=== PATIENT | male | born 1940 | race Caucasian/White ===

== ENCOUNTER 2017-04-09 05:18 | Day surgery (SDC) | payer OTHER ==
[2017-04-01 11:46] VITALS: BMI 19.0
[2017-04-04 11:12] VITALS: BMI 19.0
--- NOTE | 2017-04-04 11:32 | PAT Medication Instructions ---
Service Date Apr 04, 2017. Current Home Medication List Aspirin (Aspirin Ec), 81 MG PO QPM Carvedilol (Carvedilol), 12.5 MG PO BID Lisinopril (Zestril), 10 MG PO NOON Tamsulosin Hcl (Flomax), 0.4 MG PO QAM Medication Instructions For Your Scheduled Surgery - Hold the following medications 24 hours prior to surgery: Lisinopril (Zestril), 10 MG PO NOON - Hold the following medications the morning of surgery: Tamsulosin Hcl (Flomax), 0.4 MG PO QAM - Take the following medications the morning of surgery with a sip of water: Carvedilol (Carvedilol), 12.5 MG PO BID - Take the following medications as scheduled the night before surgery: Carvedilol (Carvedilol), 12.5 MG PO BID Aspirin (Aspirin Ec), 81 MG PO QPM (okay to continue per surgeon) If you have any questions please call us at [phone] or [phone] or [phone]
[~2017-04-09] VITALS: Ht 175.3 cm; Wt 59.1 kg
[~2017-04-09 05:18] MED LIST: ASPI81TA28 PO; CRG625 PO; FINA5TAB4 PO; LISI-461 PO; TAMS0.4C38 PO
[2017-04-09 05:30] VITALS: BP 160/67; PULSE 52; TEMP 36.6; O2SAT 97; Ht 175.3 cm; Wt 59.1 kg
[2017-04-09] MEDS ORDERED: CEFAZOLIN 2000 MG/60 ML D5W IV SCH (06:00)
[2017-04-09] MEDS ORDERED: SODIUM CHLORIDE 0.9% 1000ML 1,000 ML IV SCH (06:00)
[2017-04-09 06:21] LABS: BUN/CREATININE RATIO 12.9 (10-20); CALCIUM 8.8 mg/dl (8.5-10.1); CREATININE 2.2 mg/dl (0.60-1.40); POTASSIUM 4.2 mmol/L (3.5-5.1)
[2017-04-09] MEDS ORDERED: MIDAZOLAM HCL 1 MG/ML 2ML VIAL ONE (06:50)
[2017-04-09] MEDS ORDERED: CONRAY 30% 150ML BOTTLE ONE (06:54)
--- NOTE | 2017-04-09 07:01 | History & Physical Bridge Note ---
H&P Re-Evaluation Bridge Note: I have examined the patient, reviewed the History & Physical and in the interval since the performance of the History & Physical I have noted the following changes of clinical significance: No changes noted
[2017-04-09] MEDS ORDERED: FENTANYL CITRATE INJ 50 MCG/1 ML 2 ML VIAL ONE ×2 (07:30→08:35)
[2017-04-09] MEDS ORDERED: PROPOFOL IV EMULSION 10 MG/ML 20 ML VIAL IV ONE (07:41)
[2017-04-09] MEDS ORDERED: BELLADONNA/OPIUM SUPP 60 MG SUPP PR ONE ×2 (08:13→08:20)
[2017-04-09] MEDS ORDERED: HYDROmorphone INJ 1 MG/ML SYR IV PRN (08:30)
[2017-04-09] MEDS ORDERED: ATROPINE SULFATE 0.1 MG/ML 5ML SYR IV PRN (08:30)
[2017-04-09] MEDS ORDERED: EpHEDrine SULFATE INJ 50 MG/ML AMP IV PRN (08:30)
[2017-04-09] MEDS ORDERED: FENTANYL CITRATE INJ 50 MCG/1 ML 2 ML VIAL IV PRN (08:30)
[2017-04-09] MEDS ORDERED: ONDANSETRON INJ 2 MG/ML 2 ML VIAL IV PRN (08:30)
--- NOTE | 2017-04-09 08:35 | [facility] Operative Report ---
Operative Report Operative Date Apr 09, 2017. Pre-Operative Diagnosis Right Hydroureteronephrosis Post-Operative Diagnosis RIGHT URETERAL TUMOR Procedure(s) Performed CYSTOSCOPY, RIGHT RETROGRADE PYELOGRAM, right ureteroscopy, biopsy of right ureteral tumor, placement of hobson catheter Surgeon Dr. 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 Fluids 1000mL Specimens Permanent specimen A: Biopsy Right Ureteral Tumor Drains 6 fr firm 26 centimeter double J stent Anesthesia iv sedation Disposition Recovery Room / PACU Indications right hydroureteronephrosis which did not improve with treatment of urinary retention with Hobson catheter. We plan a right retrograde pyelogram and possible ureteroscopy and stent to investigate the cause of the ureteral obstruction Description of Procedure Patient was sedated and placed in lithotomy position. His genitals were prepped and draped in sterile fashion. Time out held with team. I placed a 21 fr rigid cystoscope to bladder. The urethra is unremarkable. The prostate is large long and elevates the bladder neck. Scope insertion was very uncomfortable for patient and did stir up bleeding at bladder neck. The bladder is moderately trabeculated. The uos are laterally displaced. I cannulated the right UO with a angled road runner and it has a bit of J hooking. I placed a 5 fr open ended catheter over the wire to the mid ureter. There is very brisk hydro drip thru the 5 fr open ended cath. I performed a right retrograde pyelogram with 30mL of dye. There is hydroureter to the mid portion of the mid ureter and then a 20mm stretch of filling defect in the distal portion of mid ureter and proximal portion of the distal ureter, then a more normal caliber distal ureter. I suspect tumor and so elected to proceed with flexible ureteroscopy. I replaced the road runner wire to the kidney and had difficulty getting the wire passed the point of filling defect. i think there is solid mass here. Wire ultimately passed with some guidance from 5 fr catheter. I placed a dual lumen cath easily and placed a stiff wire as well. I then placed a flexible ureteroscope over the road runner wire to mid ureter. I took washings and then slowly backed up the scope. He has a large papillary tumor filling the lumen of the ureter. I used a basket to take a biopsy which was predictably very small and did stir up some bleeding. I tried a second time to biopsy the mass with a basket and again retrieved very small piece of tissue. I then removed ureteroscope. I then placed a 26 centimeter 6 Fr stiff double J stent easily. There is brisk efflux after placement. I left bladder empty by placing a 18 fr coude hobson with moderate resistance at the prostate. I then concluded case. I placed a belladonna and opium suppository for post-op pain. He transferred to recovery under my escort, in stable condition. Plan: Home today Pyridium for dysuria x 3 days flomax daily oral pain meds as needed creatinine check in a week hobson out tomorrow am will call with washing results. Will need further endoscopic evaluation, [place] [facility] [place] comorbid severe heart disease. ASA 4 clean contaminated case 2 minutes 32 seconds fluoro ancef antibiotic police liaison I attest to the content of the Intraoperative Record and any orders documented therein. Any exceptions are noted below.
[2017-04-09] MEDS ORDERED: PHEN-775 PO (08:36)
[2017-04-09] MEDS ORDERED: TRAM-10 PO (08:36)
--- NOTE | 2017-04-09 08:44 | Discharge Instructions ---
Discharge Instructions Date of Service Apr 09, 2017. 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 Instructions / Follow-Up Instructions / Follow-Up You may remove hobson catheter at home morning 04.10.17 Call office [phone] if not voiding well by noon. Urine will be bloody for many days, perhaps even weeks. Drink extra fluids when the urine is bloody to rinse out the bladder call with fever, confusion or severe bladder burning as these can be symptoms of bladder infection. use tylenol 650mg for mild pain and ultram 50mg for severe pain you will have pain at the urethra, bladder and right kidney. Discharge Diet Recommended Diet: Regular Diet Procedures Procedures Performed: Cystoscopy, Right Retrograde Pyelogram; Stent Placement; Ureteroscopy, Right Ureteral Tumor Biopsy Pending Studies Studies pending at discharge: yes List of pending studies: pathology, cytology Medical Emergencies . Who to Call and When: Medical Emergencies: If at any time you feel your situation is an emergency, please call 911 immediately. . Non-Emergent Contact Non-Emergency issues call your: Urologist Call Non-Emergent contact if: temperature is above 100.5 . . "Provider Documentation" section prepared by Neelima Vargas. . VTE Core Measure Inpt VTE Proph given/why not?: SCD's [place] Drug Monitoring Program Search Results: patient reviewed within database, no issues identified
--- NOTE | 2017-04-09 09:00 | Anesthesiology Progress Note ---
Anesthesia Post Op Note Date & Time Apr 09, 2017 at 09:00 Vital Signs Pain Intensity: 1 Vital Signs Past 12 Hours Date Time Temp Pulse Resp B/P (MAP) Pulse Ox O2 Delivery O2 Flow Rate FiO2 04/09/17 08:50 36.4 52 16 129/75 98 Room Air 04/09/17 08:40 53 16 135/82 95 Room Air 04/09/17 08:30 68 16 158/94 100 Mask 10 04/09/17 08:22 36.3 68 16 145/86 100 Mask 10 04/09/17 05:30 36.6 52 20 160/67 (98) 97 Room Air Notes Mental Status: alert / awake / arousable, participated in evaluation Pt Amnestic to Procedure: Yes Nausea / Vomiting: adequately controlled Pain: adequately controlled Airway Patency, RR, SpO2: stable & adequate BP & HR: stable & adequate Hydration State: stable & adequate Anesthetic Complications: no major complications apparent
[2017-04-09 09:05] VITALS: BP 149/77; PULSE 50; TEMP 36.4; O2SAT 97
[2017-04-09 09:35] VITALS: BP 154/77; PULSE 45; TEMP 36.4; O2SAT 97
[2017-04-09 10:05] VITALS: BP 138/72; PULSE 45; TEMP 36.3; TEMP 36.4; O2SAT 97
--- NOTE | 2017-04-09 11:12 | DIAGNOSTIC IMAGING REPORT ---
RETROGRADE INCLUDES KUB HISTORY: RT CYSTO/STENT FLUOROSCOPY TIME: 156 seconds. FINDINGS: 11 fluoroscopic spot images were submitted for review. There is a guidewire within the right ureter placed in a retrograde fashion. This is followed by injection of contrast. Large filling defect seen within the distal right ureter with upstream dilatation. Moderate to severe right hydronephrosis. A right ureteral stent was placed and appears to be an good position. IMPRESSION: Fluoroscopy provided for right ureteral stent placement.. Electronically signed by: Zeus Chan M.D. 04/09/2017 11:10 AM Dictated Date/Time: 04/09/2017 11:09 AM
== END 2017-04-09 10:30 | disposition home or self-care (01) ==
LOC: C.ACU 05:18
PROVIDERS: ATTEND Urology
DX: D30.21 Benign neoplasm of right ureter (principal); I25.10 Atherosclerotic heart disease of native coronary artery without angina pectoris; E78.5 Hyperlipidemia, unspecified; I25.2 Old myocardial infarction; Z79.82 Long term (current) use of aspirin; Z68.1 Body mass index [BMI] 19.9 or less, adult; I10 Essential (primary) hypertension; Z95.1 Presence of aortocoronary bypass graft

== ENCOUNTER 2022-12-07 21:44 | Observation (INO) ==
[2022-12-07] MEDS ORDERED: ACETAMINOPHEN 1,000 MG/100 ML VIAL IV STA (21:55)
--- NOTE | 2022-12-07 22:02 | Emergency Department Note ---
History of Present Illness General Chief complaint: Fall Stated complaint: FELL, BACK PAIN, TROUBLE BREATHING Time Seen by Provider: 12/07/22 21:49 History of Present Illness Maximum Pain Intensity: 8 This 82-year-old gentleman on aspirin presents to the ER complaining of severe left-sided pain after he fell tripping over his dog. Patient complains of chest pain shortness of breath and left side pain. He does not think he hit his head. Patient denies numbness, tingling, localized weakness. Pain got worse and he came in. Home Medications Medication Instructions Recorded Confirmed Type amiodarone 200 mg tablet 200 mg PO QAM 11/30/21 12/07/22 History aspirin 81 mg chewable tablet 81 mg PO QDL 11/30/21 12/07/22 History carvedilol 12.5 mg tablet 12.5 mg PO BID 11/30/21 12/07/22 History finasteride 5 mg tablet 5 mg PO QAM 11/30/21 12/07/22 History isosorbide mononitrate 30 mg 30 mg PO QAM 11/30/21 12/07/22 History tablet,extended release 24 hr prednisone 5 mg tablet 2.5 mg PO QAM 11/30/21 12/07/22 History tamsulosin 0.4 mg capsule 0.4 mg PO QAM 11/30/21 12/07/22 History cyanocobalamin (vitamin B-12) 500 500 mcg PO DAILY 12/07/22 12/07/22 History mcg tablet (Vitamin B-12) ferrous sulfate 325 mg (65 mg 325 mg PO 3XWK 12/07/22 12/07/22 History iron) tablet (iron) levothyroxine 25 mcg tablet 37.5 mcg PO DAILYBB 12/07/22 12/07/22 History Allergies Allergy/AdvReac Type Severity Reaction Status Date / Time atorvastatin AdvReac Intermediate MUSCLE Verified 11/30/21 13:42 ACHES ARMS AND LEGS,SWELLING Past Med/Surg History Social History Smoking Status: Former smoker Preferred Language: Portuguese Feels Safe at Home: Yes Review of Systems A total of 10 systems reviewed and were otherwise negative Physical Exam Vital Signs Vital Signs - 24 hr 12/07/22 21:45 12/07/22 22:03 12/07/22 22:04 Temperature 37.2 C Temperature Source Temporal Artery Scan Pulse Rate 59 L Pulse Rate [Apical] 56 L Respiratory Rate 18 35 H Respiratory Effort / Characteristics Non-Labored Spontaneous Respiratory Depth Shallow Respiratory Pattern Regular Blood Pressure 145/79 H Blood Pressure [Right Arm] 139/91 Blood Pressure Mean 101 Blood Pressure Mean [Right Arm] 107 Blood Pressure Position [Right Arm] Lying Pulse Oximetry 94 99 98 Oxygen Delivery Method Room Air Room Air Room Air Sepsis Recent Fever Within 48 Hours No Sepsis New/Unexplained Change in Mental Status No Sepsis Action Taken by Nursing No Action Required 12/07/22 23:30 12/08/22 00:00 12/08/22 01:00 Temperature Temperature Source Pulse Rate Pulse Rate [Apical] 52 L 48 L 50 L Respiratory Rate 16 18 16 Respiratory Effort / Characteristics Respiratory Depth Respiratory Pattern Blood Pressure Blood Pressure [Right Arm] 133/58 L 154/56 H 160/69 H Blood Pressure Mean Blood Pressure Mean [Right Arm] 83 88 99 Blood Pressure Position [Right Arm] Pulse Oximetry 98 95 96 Oxygen Delivery Method Room Air Room Air Room Air Sepsis Recent Fever Within 48 Hours Sepsis New/Unexplained Change in Mental Status Sepsis Action Taken by Nursing PHYSICAL EXAM: VITALS: Vitals are noted on the nurse's note and reviewed by myself. Vital signs stable. GENERAL: Pleasant male who appears in pain, in no acute distress, nondiaphoretic, well-developed well-nourished. SKIN: The skin was without obvious lacerations or abrasions. Capillary reflex less than 2 seconds. HEAD: Normocephalic atraumatic. EARS: External auditory canals clear, EYES: Pupils equal round and reactive to light and accommodation. Conjunctivae without injection, sclerae without icterus. Extraocular movements intact. NOSE: Patent, turbinates without inflammation or discharge. No sinus tenderness. No septal hematoma or bleeding. MOUTH: Mucous membranes moist. Pharynx without erythema or exudate. Uvula midline. Airway patent. Tongue does not deviate. NECK: Supple without nuchal rigidity. Cervical spine is nontender. Full range of motion of the neck without tenderness. No JVD. HEART: Regular rate and rhythm LUNGS: Clear to auscultation bilaterally without wheezes, rales or rhonchi. No dullness to percussion. No retractions or accessory muscle use. Left-sided chest wall tenderness. ABDOMEN: Positive bowel sounds x 4. Normal tympanic percussion. Soft, left- sided abdomen tender to palpation, without masses or organomegaly. No guarding or rebound tenderness. MUSCULOSKELETAL: No tenderness of the thoracic or lumbar spine. No tenderness with pelvic rocking. Full range of motion without tenderness to palpation in all extremities. Normal gait. Strength 5/5 throughout. NEURO: Patient was alert and oriented to person place and time. Normal sensation to light and sharp touch. No focal neurological deficits. Course Administered Medications Discontinued Medications Acetaminophen (Ofirmev) 1,000 mg in 100 mls @ 400 mls/hr IV NOW STA Stop: 12/07/22 22:09 Last Infusion: 12/07/22 22:39 Dose: 0 mls/hr Documented By: Admin: 12/07/22 22:14 Dose: 400 mls/hr Documented By: MARTHA Sodium Chloride (Nss 1000ml) 500 mls @ 999 mls/hr IV .Q31M ONE Stop: 12/07/22 22:53 Last Infusion: 12/07/22 23:42 Dose: 0 mls/hr Documented By: Admin: 12/07/22 23:08 Dose: 999 mls/hr Documented By: MARTHA Medical Decision Making Medical Records Attestation: I reviewed the patient's medical records. Home Medications Current Medication List: was personally reviewed by me Laboratory Data Attestation: I reviewed the patient's lab results. 12/07/22 22:01 12/07/22 22:01 Lab Results 12/07/22 12/07/22 12/07/22 Range/Units 22:01 22:01 22:11 WBC 6.33 (4.8-10.8) K/ul RBC 3.90 L (4.70-6.10) M/uL Hgb 12.2 L (14.0-18.0) g/dl POC Hgb 12.9 L (14.0-18.0) g/dl Hct 36.9 L (42.0-52.0) % POC Hct 38 L (42-52) % MCV 94.6 (80.0-100.0) fL MCH 31.3 (25.0-34.0) pg MCHC 33.1 (32.0-36.0) g/dL RDW Std Deviation 46.2 (36.4-46.3) fL RDW Coeff of Janay 13.5 (11.5-14.5) % Plt Count 267 (130-400) K/uL MPV 8.7 L (9.4-12.4) fL Immature Gran % (Auto) 0.6 % Neut % (Auto) 60.7 % Lymph % (Auto) 21.0 % Johnston % (Auto) 9.8 % Eos % (Auto) 7.0 % Baso % (Auto) 0.9 % Neut # (Auto) 3.84 (1.40-6.50) K/uL Lymph # (Auto) 1.33 (1.2-3.4) K/uL Johnston # (Auto) 0.62 H (0.11-0.59) K/uL Eos # (Auto) 0.44 (0-0.50) K/uL Baso # (Auto) 0.06 (0-0.2) K/uL Immature Gran # (Auto) 0.04 (0.01-0.20) K/uL POC Sodium 142 (135-144) mmol/L Sodium 140 (136-145) mmol/L POC Potassium 4.2 (3.3-5.0) mmol/L Potassium 3.9 (3.5-5.1) mmol/L POC Chloride 108 (101-112) mmol/L Chloride 108 H (98-107) mmol/L Carbon Dioxide 27 (21-32) mmol/L POC Total CO2 26 (24-31) mmol/L Anion Gap 5 (3-11) POC Anion Gap 13.0 L (16-25) mmol/L POC BUN 32 H (7-18) mg/dl BUN 34 H (6-23) mg/dl Creatinine 2.21 H (0.6-1.4) mg/dl POC Creatinine 2.3 H (0.6-1.3) mg/dl Est Cr Clr Drug Dosing 21.6 ml/min Est GFR ( Amer) 31.0 ml/min Est GFR (Non-Af Amer) 26.8 ml/min BUN/Creatinine Ratio 15.4 (10-20) Glucose 125 H (70-99(Fasting)) mg/dl POC Glucose (other) 123 H (70-99) mg/dl Calcium 8.6 (8.5-10.1) mg/dl POC Ioniz Calcium Romain 1.12 (1.12-1.32) mmol/l Total Bilirubin 0.3 (0.2-1.0) mg/dl AST 17 (13-39) U/L ALT 9 (7-52) U/L Alkaline Phosphatase 108 H (34-104) U/L Total Creatine Kinase 82 (30-223) U/L Troponin I High Sens 9.0 (0-20) pg/ml Total Protein 6.8 (6.0-8.3) gm/dl Albumin 3.6 (3.4-5.0) gm/dl Globulin 3.2 (2.5-4.0) gm/dl Albumin/Globulin Ratio 1.1 (0.9-2) Urine Color Urine Appearance (Clear) Urine pH (4.5-7.5) Ur Specific [place] (1.000-1.030) Urine Protein (Negative) Urine Glucose (UA) (Negative) Urine Ketones (Negative) Urine Blood (Negative) Urine Nitrite (Negative) Urine Bilirubin (Negative) Urine Urobilinogen (Negative) Ur Leukocyte Esterase (Negative) Urine WBC (Auto) (0-5) /hpf Urine RBC (Auto) (0-4) /hpf U Hyaline Cast (Auto) (0-5) /lpf U Epithel Cells (Auto) (0-5) /lpf Urine Bacteria (Auto) (Negative) SARS-CoV-2, RNA, NAAT (NEGATIVE) 12/07/22 12/07/22 Range/Units 22:18 23:04 WBC (4.8-10.8) K/ul RBC (4.70-6.10) M/uL Hgb (14.0-18.0) g/dl POC Hgb (14.0-18.0) g/dl Hct (42.0-52.0) % POC Hct (42-52) % MCV (80.0-100.0) fL MCH (25.0-34.0) pg MCHC (32.0-36.0) g/dL RDW Std Deviation (36.4-46.3) fL RDW Coeff of Janay (11.5-14.5) % Plt Count (130-400) K/uL MPV (9.4-12.4) fL Immature Gran % (Auto) % Neut % (Auto) % Lymph % (Auto) % Johnston % (Auto) % Eos % (Auto) % Baso % (Auto) % Neut # (Auto) (1.40-6.50) K/uL Lymph # (Auto) (1.2-3.4) K/uL Johnston # (Auto) (0.11-0.59) K/uL Eos # (Auto) (0-0.50) K/uL Baso # (Auto) (0-0.2) K/uL Immature Gran # (Auto) (0.01-0.20) K/uL POC Sodium (135-144) mmol/L Sodium (136-145) mmol/L POC Potassium (3.3-5.0) mmol/L Potassium (3.5-5.1) mmol/L POC Chloride (101-112) mmol/L Chloride (98-107) mmol/L Carbon Dioxide (21-32) mmol/L POC Total CO2 (24-31) mmol/L Anion Gap (3-11) POC Anion Gap (16-25) mmol/L POC BUN (7-18) mg/dl BUN (6-23) mg/dl Creatinine (0.6-1.4) mg/dl POC Creatinine (0.6-1.3) mg/dl Est Cr Clr Drug Dosing ml/min Est GFR ( Amer) ml/min Est GFR (Non-Af Amer) ml/min BUN/Creatinine Ratio (10-20) Glucose (70-99(Fasting)) mg/dl POC Glucose (other) (70-99) mg/dl Calcium (8.5-10.1) mg/dl POC Ioniz Calcium Romain (1.12-1.32) mmol/l Total Bilirubin (0.2-1.0) mg/dl AST (13-39) U/L ALT (7-52) U/L Alkaline Phosphatase (34-104) U/L Total Creatine Kinase (30-223) U/L Troponin I High Sens (0-20) pg/ml Total Protein (6.0-8.3) gm/dl Albumin (3.4-5.0) gm/dl Globulin (2.5-4.0) gm/dl Albumin/Globulin Ratio (0.9-2) Urine Color Yellow Urine Appearance Clear (Clear) Urine pH 6.0 (4.5-7.5) Ur Specific [place] 1.017 (1.000-1.030) Urine Protein Negative (Negative) Urine Glucose (UA) Negative (Negative) Urine Ketones Negative (Negative) Urine Blood Negative (Negative) Urine Nitrite Negative (Negative) Urine Bilirubin Negative (Negative) Urine Urobilinogen Negative (Negative) Ur Leukocyte Esterase Trace H (Negative) Urine WBC (Auto) 1-5 (0-5) /hpf Urine RBC (Auto) 0-4 (0-4) /hpf U Hyaline Cast (Auto) 0 (0-5) /lpf U Epithel Cells (Auto) 10-20 H (0-5) /lpf Urine Bacteria (Auto) Negative (Negative) SARS-CoV-2, RNA, NAAT NEGATIVE (NEGATIVE) Imaging Data Attestation: I personally reviewed and interpreted this imaging study as follows: Radiologist's Impression: Chest X-Ray 12/07/22 21:55 XR chest 1V portable HISTORY: 82 years-old Male fall, pain . Acute chest pain status post fall COMPARISON: 11/30/2021 TECHNIQUE: AP view of the chest FINDINGS: Cardiac silhouette is enlarged. Prior median sternotomy with CABG. Left subclavian pacer/AICD. Mild subsegmental left basilar atelectasis. No pneumothorax or large pleural effusion. Degenerative changes of the shoulders and spine. IMPRESSION: Cardiomegaly without acute process. ACT 112: Negative or not required by law. The above report was generated using voice recognition software. It may contain grammatical, syntax or spelling errors. Electronically signed by: Len Gerardo M.D. 12/07/2022 10:22 PM Abdomen/Pelvis CT 12/07/22 21:56 CT chest diagnostic wo con, CT lumbar spine wo con, CT thoracic spine wo con, CT abd pelvis wo con CLINICAL HISTORY: 82 years-old Male with Trauma. Acute chest, abdominal and back pain status post fall TECHNIQUE: Multiaxial CT images of the chest, abdomen and pelvis, thoracic and lumbar spine were performed without contrast. A dose lowering technique was utilized adhering to the principles of ALARA. COMPARISON: CT abdomen pelvis 11/30/2021, 12/19/2015 FINDINGS: CT CHEST: Unremarkable thyroid. Left subclavian pacer. Prior median sternotomy with CABG. Extensive coronary artery calcifications. Moderate cardiomegaly. No thoracic aortic aneurysm. No lymphadenopathy identified. No pneumothorax, pleural effusion, airspace consolidation or overt pulmonary edema. Mild subsegmental bibasilar atelectasis. Stable benign 6 cm nodule within the right lower lobe on image 198 is unchanged from 2016. There are a few additional scattered solid pulmonary nodules noted bilaterally measuring up to 3 mm. Central airways are patent. Unremarkable soft tissues. Degenerative changes of the shoulders and spine. No acute fracture identified. Minimal age- indeterminate superior endplate compression of the T4 vertebral body without retropulsion or paravertebral edema. CT ABDOMEN/PELVIS: The unenhanced spleen, and pancreas. Unremarkable. Thickening of the adrenal glands suggestive of hyperplasia. Cholelithiasis. Hepatic cysts are redemonstrated measuring up to approximately 3.4 cm in the right hepatic lobe. Unchanged mild left renal atrophy. Interval development of severe right-sided hydroureteronephrosis with right renal atrophy redemonstrated. Ureteral dilation extends to the level of the ureterovesicular junction. No obstructing mass or stone identified. Prostamegaly. Urinary bladder wall thickening. Atherosclerosis of the aorta. No lymphadenopathy identified. No bowel obstruction or bowel wall thickening. Moderate colonic fecal retention. Normal appendix. No acute fracture identified. Degenerative changes of the spine, pelvis and hips. CT THORACIC: Minimal age-indeterminate superior endplate compression of the T4 vertebral body without retropulsion or paravertebral edema. No definitive acute fracture or subluxation identified. Additional chronic appearing mild wedge deformities. Mild to moderate degenerative changes. CT LUMBAR: Mild to moderate degenerative changes. No acute fracture or subluxation identified. Demineralized appearance of the bones. IMPRESSION: 1. No acute posttraumatic intrathoracic, intra-abdominal or intrapelvic abnormality identified. 2. Mild age-indeterminate T4 superior endplate compression without retropulsion or paravertebral edema, likely chronic. 3. Interval development of severe right-sided hydroureteronephrosis with dilation of the right ureter extending to level of the ureterovesicular junction. No obstructing stone or lesion identified. Follow-up with urology is needed. 4. Right greater than left renal atrophy redemonstrated. 5. Additional findings as above. ACT 112: Negative or not required by law. Electronically signed by: Len Gerardo M.D. 12/07/2022 11:[address] 12/07/22 21:56 CT cervical spine wo con CT DOSE: 1366.88 mGy.cm CLINICAL HISTORY: 82 years-old Male with Trauma. Acute head and neck injury status post fall COMPARISON: CT cervical spine 12/19/2015 TECHNIQUE: Multiple axial CT images of the cervical spine were obtained without contrast. A dose lowering technique was utilized adhering to the principles of ALARA. FINDINGS: Multilevel degenerative changes. No acute fracture or subluxation identified. The cervical soft tissues appear unremarkable. The visualized lung apices appear clear. Trace mastoid effusions. Calcifications of the carotid bulbs. IMPRESSION: No acute cervical spine fracture or subluxation. ACT 112: Negative or not required by law. The above report was generated using voice recognition software. It may contain grammatical, syntax or spelling errors. Electronically signed by: Len Gerardo M.D. 12/07/2022 11:[address] 12/07/22 21:56 CT chest diagnostic wo con, CT lumbar spine wo con, CT thoracic spine wo con, CT abd pelvis wo con CLINICAL HISTORY: 82 years-old Male with Trauma. Acute chest, abdominal and back pain status post fall TECHNIQUE: Multiaxial CT images of the chest, abdomen and pelvis, thoracic and lumbar spine were performed without contrast. A dose lowering technique was utilized adhering to the principles of ALARA. COMPARISON: CT abdomen pelvis 11/30/2021, 12/19/2015 FINDINGS: CT CHEST: Unremarkable thyroid. Left subclavian pacer. Prior median sternotomy with CABG. Extensive coronary artery calcifications. Moderate cardiomegaly. No thoracic aortic aneurysm. No lymphadenopathy identified. No pneumothorax, pleural effusion, airspace consolidation or overt pulmonary edema. Mild subsegmental bibasilar atelectasis. Stable benign 6 cm nodule within the right lower lobe on image 198 is unchanged from 2016. There are a few additional scattered solid pulmonary nodules noted bilaterally measuring up to 3 mm. Central airways are patent. Unremarkable soft tissues. Degenerative changes of the shoulders and spine. No acute fracture identified. Minimal age- indeterminate superior endplate compression of the T4 vertebral body without retropulsion or paravertebral edema. CT ABDOMEN/PELVIS: The unenhanced spleen, and pancreas. Unremarkable. Thickening of the adrenal glands suggestive of hyperplasia. Cholelithiasis. Hepatic cysts are redemonstrated measuring up to approximately 3.4 cm in the right hepatic lobe. Unchanged mild left renal atrophy. Interval development of severe right-sided hydroureteronephrosis with right renal atrophy redemonstrated. Ureteral dilation extends to the level of the ureterovesicular junction. No obstructing mass or stone identified. Prostamegaly. Urinary bladder wall thickening. Atherosclerosis of the aorta. No lymphadenopathy identified. No bowel obstruction or bowel wall thickening. Moderate colonic fecal retention. Normal appendix. No acute fracture identified. Degenerative changes of the spine, pelvis and hips. CT THORACIC: Minimal age-indeterminate superior endplate compression of the T4 vertebral body without retropulsion or paravertebral edema. No definitive acute fracture or subluxation identified. Additional chronic appearing mild wedge deformities. Mild to moderate degenerative changes. CT LUMBAR: Mild to moderate degenerative changes. No acute fracture or subluxation identified. Demineralized appearance of the bones. IMPRESSION: 1. No acute posttraumatic intrathoracic, intra-abdominal or intrapelvic abnormality identified. 2. Mild age-indeterminate T4 superior endplate compression without retropulsion or paravertebral edema, likely chronic. 3. Interval development of severe right-sided hydroureteronephrosis with dilation of the right ureter extending to level of the ureterovesicular junction. No obstructing stone or lesion identified. Follow-up with urology is needed. 4. Right greater than left renal atrophy redemonstrated. 5. Additional findings as above. ACT 112: Negative or not required by law. Electronically signed by: Len Gerardo M.D. 12/07/2022 11:[address] 12/07/22 21:56 CT head/brain wo con CLINICAL HISTORY: 82 years-old Male with Trauma. Acute head injury status post fall TECHNIQUE: Multiple axial CT images of the head were obtained without contrast. A dose lowering technique was utilized adhering to the principles of ALARA. COMPARISON: CT cervical spine of same day, head CT 12/19/2015 FINDINGS: No acute intracranial hemorrhage, midline shift, intracranial mass, hydrocephalus, territorial ischemia or abnormal extra-axial collection. Involutional changes with chronic microvascular ischemic disease. Cerebral vascular calcifications. The calvarium is intact. Trace mastoid effusions. The paranasal sinuses are clear. Small left lateral scalp contusion. Prior bilateral lens repair. IMPRESSION: 1. No acute intracranial abnormality or calvarial fracture. 2. Small left lateral scalp contusion. ACT 112: Negative or not required by law. The above report was generated using voice recognition software. It may contain grammatical, syntax or spelling errors. Electronically signed by: Len Gerardo M.D. 12/07/2022 11:[address] 12/07/22 21:56 CT chest diagnostic wo con, CT lumbar spine wo con, CT thoracic spine wo con, CT abd pelvis wo con CLINICAL HISTORY: 82 years-old Male with Trauma. Acute chest, abdominal and back pain status post fall TECHNIQUE: Multiaxial CT images of the chest, abdomen and pelvis, thoracic and lumbar spine were performed without contrast. A dose lowering technique was utilized adhering to the principles of ALARA. COMPARISON: CT abdomen pelvis 11/30/2021, 12/19/2015 FINDINGS: CT CHEST: Unremarkable thyroid. Left subclavian pacer. Prior median sternotomy with CABG. Extensive coronary artery calcifications. Moderate cardiomegaly. No thoracic aortic aneurysm. No lymphadenopathy identified. No pneumothorax, pleural effusion, airspace consolidation or overt pulmonary edema. Mild subsegmental bibasilar atelectasis. Stable benign 6 cm nodule within the right lower lobe on image 198 is unchanged from 2016. There are a few additional scattered solid pulmonary nodules noted bilaterally measuring up to 3 mm. Central airways are patent. Unremarkable soft tissues. Degenerative changes of the shoulders and spine. No acute fracture identified. Minimal age- indeterminate superior endplate compression of the T4 vertebral body without retropulsion or paravertebral edema. CT ABDOMEN/PELVIS: The unenhanced spleen, and pancreas. Unremarkable. Thickening of the adrenal glands suggestive of hyperplasia. Cholelithiasis. Hepatic cysts are redemonstrated measuring up to approximately 3.4 cm in the right hepatic lobe. Unchanged mild left renal atrophy. Interval development of severe right-sided hydroureteronephrosis with right renal atrophy redemonstrated. Ureteral dilation extends to the level of the ureterovesicular junction. No obstructing mass or stone identified. Prostamegaly. Urinary bladder wall thickening. Atherosclerosis of the aorta. No lymphadenopathy identified. No bowel obstruction or bowel wall thickening. Moderate colonic fecal retention. Normal appendix. No acute fracture identified. Degenerative changes of the spine, pelvis and hips. CT THORACIC: Minimal age-indeterminate superior endplate compression of the T4 vertebral body without retropulsion or paravertebral edema. No definitive acute fracture or subluxation identified. Additional chronic appearing mild wedge deformities. Mild to moderate degenerative changes. CT LUMBAR: Mild to moderate degenerative changes. No acute fracture or subluxation identified. Demineralized appearance of the bones. IMPRESSION: 1. No acute posttraumatic intrathoracic, intra-abdominal or intrapelvic abnormality identified. 2. Mild age-indeterminate T4 superior endplate compression without retropulsion or paravertebral edema, likely chronic. 3. Interval development of severe right-sided hydroureteronephrosis with dilation of the right ureter extending to level of the ureterovesicular junction. No obstructing stone or lesion identified. Follow-up with urology is needed. 4. Right greater than left renal atrophy redemonstrated. 5. Additional findings as above. ACT 112: Negative or not required by law. Electronically signed by: Len Gerardo M.D. 12/07/2022 11:[address] 12/07/22 21:56 CT chest diagnostic wo con, CT lumbar spine wo con, CT thoracic spine wo con, CT abd pelvis wo con CLINICAL HISTORY: 82 years-old Male with Trauma. Acute chest, abdominal and back pain status post fall TECHNIQUE: Multiaxial CT images of the chest, abdomen and pelvis, thoracic and lumbar spine were performed without contrast. A dose lowering technique was utilized adhering to the principles of ALARA. COMPARISON: CT abdomen pelvis 11/30/2021, 12/19/2015 FINDINGS: CT CHEST: Unremarkable thyroid. Left subclavian pacer. Prior median sternotomy with CABG. Extensive coronary artery calcifications. Moderate cardiomegaly. No thoracic aortic aneurysm. No lymphadenopathy identified. No pneumothorax, pleural effusion, airspace consolidation or overt pulmonary edema. Mild subsegmental bibasilar atelectasis. Stable benign 6 cm nodule within the right lower lobe on image 198 is unchanged from 2016. There are a few additional scattered solid pulmonary nodules noted bilaterally measuring up to 3 mm. Central airways are patent. Unremarkable soft tissues. Degenerative changes of the shoulders and spine. No acute fracture identified. Minimal age- indeterminate superior endplate compression of the T4 vertebral body without retropulsion or paravertebral edema. CT ABDOMEN/PELVIS: The unenhanced spleen, and pancreas. Unremarkable. Thickening of the adrenal glands suggestive of hyperplasia. Cholelithiasis. Hepatic cysts are redemonstrated measuring up to approximately 3.4 cm in the right hepatic lobe. Unchanged mild left renal atrophy. Interval development of severe right-sided hydroureteronephrosis with right renal atrophy redemonstrated. Ureteral dilation extends to the level of the ureterovesicular junction. No obstructing mass or stone identified. Prostamegaly. Urinary bladder wall thickening. Atherosclerosis of the aorta. No lymphadenopathy identified. No bowel obstruction or bowel wall thickening. Moderate colonic fecal retention. Normal appendix. No acute fracture identified. Degenerative changes of the spine, pelvis and hips. CT THORACIC: Minimal age-indeterminate superior endplate compression of the T4 vertebral body without retropulsion or paravertebral edema. No definitive acute fracture or subluxation identified. Additional chronic appearing mild wedge deformities. Mild to moderate degenerative changes. CT LUMBAR: Mild to moderate degenerative changes. No acute fracture or subluxation identified. Demineralized appearance of the bones. IMPRESSION: 1. No acute posttraumatic intrathoracic, intra-abdominal or intrapelvic abnormality identified. 2. Mild age-indeterminate T4 superior endplate compression without retropulsion or paravertebral edema, likely chronic. 3. Interval development of severe right-sided hydroureteronephrosis with dilation of the right ureter extending to level of the ureterovesicular junction. No obstructing stone or lesion identified. Follow-up with urology is needed. 4. Right greater than left renal atrophy redemonstrated. 5. Additional findings as above. ACT 112: Negative or not required by law. Electronically signed by: Len Gerardo M.D. 12/07/2022 11:25 PM Head Trauma GCS Score: 15 MDM Narrative Prior records/ancillary studies reviewed. Triage Nursing notes reviewed. Additional history obtained from family. The patient's history was concerning for traumatic injury Differential diagnosis: Etiologies such as fracture, dislocation, intra-abdominal, pneumothorax, intrathoracic , intracranial, neurologic, as well as other traumatic pathologies were entertained. Physical examination findings: As above. The patients vitals were stable. ER treatment provided: IV Normal Saline hydration, IV fluids, Tylenol An order was placed for continuous cardiac monitoring. The monitor shows a rate of 50-100 with a sinus rhythm per my interpretation. On reassessment the patient felt better. Vital signs were stable. Diagnostic interpretation by me: EKG ordered for chest pain EKG: Poor baseline, normal sinus, T wave inversions in the anteroseptal leads, rate of 51. Impression sinus bradycardia with a first-degree AV block T wave versions in the anteroseptal leads interpreted by myself The labs Independently Interpreted by myself revealed anemia, elevated creatinine prior chart review, negative troponin I-STAT was ordered and patient was emergently sent down to CAT scan Imaging studies: Chest x-ray with no acute consolidation, pneumothorax or free air per my independent interpretation CTs as above Consultation: A consultation was placed with hospitalist. The case was discussed and diag nostics were reviewed. The patient was admitted to their service. This appears to be consistent with fall with abnormal EKG acute kidney injury and hydronephrosis on the right kidney. Patient was hydrated as above. He was reassessed multiple times. Labs and diagnostics were independently interpreted by myself. Radiology read the CAT scans. Patient is agreeable treatment plan of admission. Medicine was consulted and the case was discussed. Family is agreeable. By the evaluation outlined above emergent etiologies such as fracture, dislocation, intra-abdominal, pneumothorax, pulmonary contusion, hemothorax, intracranial, neurologic,as well as others were deemed relatively unlikely. The pt/family informed about the findings as listed above. All questions were answered and pleased with the treatment. The chart was completed utilizing [employer] Speech voice recognition software. Grammatical errors, random word insertions, pronoun errors, and incomplete sentences are an occassional consequence of this system due to software limitations, ambient noise, and hardware issues. Any formal questions or concerns about the content, text, or information contained within the body of this dictation should be directly addressed to the physician embalmer assistant for clarification. Attending Attestation: Monik Castano MD independently saw and evaluated this patient and agree with history and physical is otherwise documented by the physician embalmer assistant. See their note for full details. Patient suffered a fall with some back discomfort. Imaging completed here to exclude significant traumatic injury. Pain improved with Tylenol. CT imaging reports were reassuring but did show some evidence of some right hydronephrosis. Prior urological history and follows with [facility]. Creatinine record of prior to our system is elevated. Given this and the hydronephrosis brought in for further evaluation. Urinalysis negative for infection. Hospitalist contacted. Impression & Plan Fall, BAO (acute kidney injury), Hydronephrosis, Abnormal ECG Discharge Plan Visit Data Chief Complaint: Fall Stated Complaint: FELL, BACK PAIN, TROUBLE BREATHING ED Provider: Lee Castano ED Midlevel Provider: Stefanie Garrison Discharge Problem: Fall, BAO (acute kidney injury), Hydronephrosis, Abnormal ECG Patient Disposition: Admitted As Inpatient Condition: Fair Forms Stand Alone Forms: [facility] Prescriptions Prescriptions: No Action carvedilol 12.5 mg tablet 12.5 mg PO BID amiodarone 200 mg tablet 200 mg PO QAM isosorbide mononitrate 30 mg tablet extended release 24 hr 30 mg PO QAM prednisone 5 mg tablet 2.5 mg PO QAM tamsulosin 0.4 mg capsule 0.4 mg PO QAM aspirin 81 mg Tablet,Chewable 81 mg PO QDL finasteride 5 mg tablet 5 mg PO QAM levothyroxine 25 mcg tablet 37.5 mcg PO DAILYBB Rx Instructions: 1 & 1/2 tablet dose cyanocobalamin (vitamin B-12) [Vitamin B-12] 500 mcg Tablet 500 mcg PO DAILY ferrous sulfate [iron] 325 mg (65 mg iron) Tablet 325 mg PO 3XWK Rx Instructions: take daily on MONDAYS,WEDNESDAYS,FRIDAYS Referrals Referrals: Francisco Patel [Primary Care Provider] - Fall Qualifiers: Encounter type: initial encounter Qualified Code(s): W19.XXXA - Unspecified fall, initial encounter
[2022-12-07] MEDS ORDERED: SODIUM CHLORIDE 0.9% 1000ML 500 ML IV ONE (22:23)
--- NOTE | 2022-12-07 22:23 | XRay Report ---
XR chest 1V portable HISTORY: 82 years-old Male fall, pain . Acute chest pain status post fall COMPARISON: 11/30/2021 TECHNIQUE: AP view of the chest FINDINGS: Cardiac silhouette is enlarged. Prior median sternotomy with CABG. Left subclavian pacer/AICD. Mild s ubsegmental left basilar atelectasis. No pneumothorax or large pleural effusion. Degenerative changes of the shoulders and spine. IMPRESSION: Cardiomegaly without acute process. ACT 112: Negative or not required by law. The above report was generated using voice recognition software. It may contain grammatical, syntax o r spelling errors. Electronically signed by: Len Gerardo M.D. 12/07/2022 10:22 PM
[2022-12-07 22:26] LABS: Basophils # (auto) 0.06 K/uL (0-0.2); Basophils % (auto) 0.9 %; Eosinophils # (auto) 0.44 K/uL (0-0.50); Hematocrit (blood only) 36.9 % (42.0-52.0); Hemoglobin 12.2 g/dl (14.0-18.0); Immature Granulocytes # (auto) 0.04 K/uL (0.01-0.20); Immature Granulocytes % (auto) 0.6 %; Lymphocytes # (auto) 1.33 K/uL (1.2-3.4); Mean Corpuscular Hemoglobin 31.3 pg (25.0-34.0); Mean Corpuscular Hgb Conc 33.1 g/dL (32.0-36.0); Mean Corpuscular Volume 94.6 fL (80.0-100.0); Mean Platelet Volume 8.7 fL (9.4-12.4); Monocytes # (auto) 0.62 K/uL (0.11-0.59); Monocytes % (auto) 9.8 %; Neutrophils # (auto) 3.84 K/uL (1.40-6.50); Neutrophils % (auto) 60.7 %; Platelet Count 267 K/uL (130-400); RDW Coefficient of Variation 13.5 % (11.5-14.5); RDW Standard Deviation 46.2 fL (36.4-46.3); White Blood Count 6.33 K/ul (4.8-10.8)
[2022-12-07 22:33] LABS: iSTAT Creatinine 2.3 mg/dl (0.6-1.3); iSTAT Hemoglobin 12.9 g/dl (14.0-18.0); iSTAT Ionized Calcium 1.12 mmol/l (1.12-1.32); iSTAT Potassium 4.2 mmol/L (3.3-5.0)
[2022-12-07 22:34] LABS: Albumin Globulin Ratio 1.1 (0.9-2); Albumin Level 3.6 gm/dl (3.4-5.0); BUN Creatinine Ratio 15.4 (10-20); Bilirubin,Total 0.3 mg/dl (0.2-1.0); Calcium 8.6 mg/dl (8.5-10.1); Creatinine Clr Calc Pharmacy 21.6 ml/min; Est GFR (Non-African American) 26.8 ml/min; Globulin 3.2 gm/dl (2.5-4.0); Potassium 3.9 mmol/L (3.5-5.1); Total Protein 6.8 gm/dl (6.0-8.3)
--- NOTE | 2022-12-07 23:09 | CT Scan Report ---
CT head/brain wo con CLINICAL HISTORY: 82 years-old Male with Trauma. Acute head injury status post fall TECHNIQUE: Multiple axial CT images of the head were obtained without contrast. A dose lowering tech nique was utilized adhering to the principles of ALARA. COMPARISON: CT cervical spine of same day, head CT 12/19/2015 FINDINGS: No acute intracranial hemorrhage, midline shift, intracranial mass, hydrocephalus, territorial ischem ia or abnormal extra-axial collection. Involutional changes with chronic microvascular ischemic disea se. Cerebral vascular calcifications. The calvarium is intact. Trace mastoid effusions. The paranasal sinuses are clear. Small left latera l scalp contusion. Prior bilateral lens repair. IMPRESSION: 1. No acute intracranial abnormality or calvarial fracture. 2. Small left lateral scalp contusion. ACT 112: Negative or not required by law. The above report was generated using voice recognition software. It may contain grammatical, syntax o r spelling errors. Electronically signed by: Len Gerardo M.D. 12/07/2022 11:08 PM
--- NOTE | 2022-12-07 23:13 | CT Scan Report ---
CT cervical spine wo con CT DOSE: 1366.88 mGy.cm CLINICAL HISTORY: 82 years-old Male with Trauma. Acute head and neck injury status post fall COMPARISON: CT cervical spine 12/19/2015 TECHNIQUE: Multiple axial CT images of the cervical spine were obtained without contrast. A dose low ering technique was utilized adhering to the principles of ALARA. FINDINGS: Multilevel degenerative changes. No acute fracture or subluxation identified. The cervical soft tissues appear unremarkable. The visualized lung apices appear clear. Trace mastoid effusions. Calcifications of the carotid bulbs. IMPRESSION: No acute cervical spine fracture or subluxation. ACT 112: Negative or not required by law. The above report was generated using voice recognition software. It may contain grammatical, syntax o r spelling errors. Electronically signed by: Len Gerardo M.D. 12/07/2022 11:10 PM
[2022-12-07 23:20] LABS: Appearance Urine Clear (Clear); Bacteria Urine Automated Negative (Negative); Bilirubin Urine Negative (Negative); Blood Urine Negative (Negative); Cast Urine Automated 0 /lpf (0-5); Color Urine Yellow; Glucose Urine UA Negative (Negative); Ketones Urine Negative (Negative); Leukocyte Esterase Urine Trace (Negative); Nitrite Urine Negative (Negative); Protein Urine Negative (Negative); RBC Urine Automated 0-4 /hpf (0-4); Specific Gravity Urine 1.017 (1.000-1.030); Urobilinogen Urine Negative (Negative)
--- NOTE | 2022-12-07 23:27 | CT Scan Report ---
CT chest diagnostic wo con, CT lumbar spine wo con, CT thoracic spine wo con, CT abd pelvis wo con CLINICAL HISTORY: 82 years-old Male with Trauma. Acute chest, abdominal and back pain status post fa ll TECHNIQUE: Multiaxial CT images of the chest, abdomen and pelvis, thoracic and lumbar spine were perf ormed without contrast. A dose lowering technique was utilized adhering to the principles of ALARA. COMPARISON: CT abdomen pelvis 11/30/2021, 12/19/2015 FINDINGS: CT CHEST: Unremarkable thyroid. Left subclavian pacer. Prior median sternotomy with CABG. Extensive coronary a rtery calcifications. Moderate cardiomegaly. No thoracic aortic aneurysm. No lymphadenopathy identifi ed. No pneumothorax, pleural effusion, airspace consolidation or overt pulmonary edema. Mild subsegmental bibasilar atelectasis. Stable benign 6 cm nodule within the right lower lobe on image 198 is unchang ed from 2016. There are a few additional scattered solid pulmonary nodules noted bilaterally measurin g up to 3 mm. Central airways are patent. Unremarkable soft tissues. Degenerative changes of the shou lders and spine. No acute fracture identified. Minimal age-indeterminate superior endplate compressio n of the T4 vertebral body without retropulsion or paravertebral edema. CT ABDOMEN/PELVIS: The unenhanced spleen, and pancreas. Unremarkable. Thickening of the adrenal glands suggestive of hyp erplasia. Cholelithiasis. Hepatic cysts are redemonstrated measuring up to approximately 3.4 cm in th e right hepatic lobe. Unchanged mild left renal atrophy. Interval development of severe right-sided hydroureteronephrosis w ith right renal atrophy redemonstrated. Ureteral dilation extends to the level of the ureterovesicula r junction. No obstructing mass or stone identified. Prostamegaly. Urinary bladder wall thickening. A therosclerosis of the aorta. No lymphadenopathy identified. No bowel obstruction or bowel wall thicke cb. Moderate colonic fecal retention. Normal appendix. No acute fracture identified. Degenerative c hanges of the spine, pelvis and hips. CT THORACIC: Minimal age-indeterminate superior endplate compression of the T4 vertebral body without retropulsion or paravertebral edema. No definitive acute fracture or subluxation identified. Additional chronic a ppearing mild wedge deformities. Mild to moderate degenerative changes. CT LUMBAR: Mild to moderate degenerative changes. No acute fracture or subluxation identified. Demineralized gerhard earance of the bones. IMPRESSION: 1. No acute posttraumatic intrathoracic, intra-abdominal or intrapelvic abnormality identified. 2. Mild age-indeterminate T4 superior endplate compression without retropulsion or paravertebral honey a, likely chronic. 3. Interval development of severe right-sided hydroureteronephrosis with dilation of the right ureter extending to level of the ureterovesicular junction. No obstructing stone or lesion identified. Foll ow-up with urology is needed. 4. Right greater than left renal atrophy redemonstrated. 5. Additional findings as above. ACT 112: Negative or not required by law. Electronically signed by: Len Gerardo M.D. 12/07/2022 11:25 PM
[2022-12-08] MEDS ORDERED: POLYETHYLENE (MIRALAX) 17 GM PACK PO PRN (02:29)
[2022-12-08] MEDS ORDERED: NITROGLYCERIN SL 0.4 MG/TAB TAB SL PRN (02:29)
[2022-12-08] MEDS: SODIUM CHLORIDE 0.9% 1000ML 1,000 ML IV SCH ×3 (03:14→23:18)
[2022-12-08] MEDS ORDERED: PNEUMOCOCCAL Polysaccharide Vaccine 25mcg/0.5mL vial/Syr IM ONE (04:30)
[2022-12-08] MEDS: LEVOTHYROXINE SODIUM 25 MCG TABLET PO SCH (05:57)
[2022-12-08] MEDS: carvediloL 12.5 MG TAB PO SCH ×2 (07:12→21:06)
[2022-12-08 07:35] LABS: Basophils # (auto) 0.04 K/uL (0-0.2); Basophils % (auto) 0.7 %; Eosinophils # (auto) 0.38 K/uL (0-0.50); Eosinophils % (auto) 6.4 %; Hematocrit (blood only) 34.2 % (42.0-52.0); Hemoglobin 11.3 g/dl (14.0-18.0); Immature Granulocytes # (auto) 0.02 K/uL (0.01-0.20); Immature Granulocytes % (auto) 0.3 %; Lymphocytes # (auto) 1.14 K/uL (1.2-3.4); Lymphocytes % (auto) 19.2 %; Mean Corpuscular Hemoglobin 31.1 pg (25.0-34.0); Mean Corpuscular Volume 94.2 fL (80.0-100.0); Mean Platelet Volume 8.8 fL (9.4-12.4); Monocytes # (auto) 0.59 K/uL (0.11-0.59); Monocytes % (auto) 9.9 %; Neutrophils # (auto) 3.78 K/uL (1.40-6.50); Neutrophils % (auto) 63.5 %; Platelet Count 222 K/uL (130-400); RDW Coefficient of Variation 13.3 % (11.5-14.5); RDW Standard Deviation 46.1 fL (36.4-46.3); Red Blood Count 3.63 M/uL (4.70-6.10); White Blood Count 5.95 K/ul (4.8-10.8)
[2022-12-08 07:44] LABS: BUN Creatinine Ratio 16.8 (10-20); Calcium 8.1 mg/dl (8.5-10.1); Creatinine Clr Calc Pharmacy 25.6 ml/min; Est GFR (Non-African American) 34.5 ml/min; Magnesium 2.2 mg/dl (1.7-2.4)
--- NOTE | 2022-12-08 08:23 | History and Physical Report ---
DATE OF ADMISSION: 12/08/2022. CHIEF COMPLAINT: Status post fall, BAO. HISTORY OF PRESENT ILLNESS: This is an 82-year-old male with past medical history significant for hyperlipidemia, CAD, history of ischemic cardiomyopathy, status post cardiac defibrillator, history of PVCs, history of ureteral tumor, history of chronic kidney disease, who presents with fall. The patient was tripped over the dog and fell down on the back on the left side, complaining of back pain. The patient was brought into the hospital. Imaging studies were okay for any acute injuries. Creatinine was found to be 2.2, baseline seems to be around 1.4-1.6. His CT of abdomen and pelvis showing severe right-sided hydroureteronephrosis, dilatation of the right ureter extending to the level of the ureterovesical junction. No obstructive stones or lesions identified. The patient is currently resting comfortably and hemodynamically stable. He says that when he came in the pain of the back was 7/10, currently 4/10 in severity. Did not hit his head. No loss of consciousness and was able to get up after falling down. No blurred visions, no earache. Some runny nose, no sore throat, no cough. Appetite is okay. No chest pain or shortness of breath, no nausea, no abdominal pain. Normal bowel and bladder movements. Hemodynamically stable. ALLERGIES: TO LIPITOR. PAST MEDICAL HISTORY: As mentioned above. PAST SURGICAL HISTORY: Renal angioplasty, CABG, colonoscopy, cystoscopy, cystourethroscopy with biopsy, cystoscopy with insertion of stent and removal of the stent, cystourethroscopy with excision of tumor in right side in May 2017, defibrillator placement, cataracts bilateral. MEDICATIONS: The patient is on amiodarone 200 mg p.o. a.m., aspirin 81 mg p.o. daily, Coreg 12.5 mg p.o. b.i.d., vitamin B12 500 mcg p.o. daily, ferrous sulfate 325 mg p.o. 3 times weekly, finasteride 5 mg p.o. a.m., isosorbide mononitrate 30 mg p.o. a.m., levothyroxine 37.5 mcg p.o. daily, prednisone 2.5 mg p.o. a.m., Flomax 0.4 mg p.o. a.m. FAMILY HISTORY: Significant for father has arthritis, heart disorder; mother has heart disorder, arthritis; daughter has diabetes; brother has heart disorder. SOCIAL HISTORY: . Smokes 1-2 cigarettes a day. No alcohol use. No drug use. REVIEW OF SYSTEMS: As per HPI. Rest of the review of systems is negative. PHYSICAL EXAMINATION: GENERAL: The patient is of moderate build, not in acute distress. VITAL SIGNS: Temperature 37.2, pulse 50s, blood pressure 154/56, oxygen 95% on room air. HEENT: Pupils equal, round and reactive to light. Oral mucosa moist. NECK: No JVD, no neck masses. CARDIOVASCULAR: S1 and S2 heard. Bradycardia. No murmurs. RESPIRATORY SYSTEM: Normal AP diameter. No accessory muscle use. No wheezing, no crackles. ABDOMEN: Soft, bowel sounds present, nontender, no distention. CENTRAL NERVOUS SYSTEM: Alert and oriented. Speech is clear. No facial droop. Obeys simple commands. Moves extremities. EXTREMITIES: No edema, no erythema. LABORATORY DATA: WBC 6.3, hemoglobin 12.2, hematocrit 36.9, platelets 267. Sodium 140, potassium 3.9, chloride 108, bicarbonate 27, BUN 34, creatinine 2.2, serum glucose 125, calcium 8.6, total bilirubin 0.3, AST 17, ALT 9, alkaline phosphatase 108. Total creatine kinase 82. Troponin I high sensitivity 9. Urinalysis: Trace leukocyte esterase, bacteria negative. SARS-CoV-2 rapid test negative. IMAGING DATA: Thoracic spine CT, CT chest without contrast, CT lumbar spine without contrast, CT of the thoracic spine without contrast, CT abdomen and pelvis without contrast, no acute posttraumatic intrathoracic, intraabdominal or intrapelvic abnormality identified. Mild age indeterminate T4 superior endplate compression without retropulsion or paravertebral edema, likely chronic. Interval development of severe right-sided hydroureteronephrosis with dilatation of the right ureter extending to the level of the ureterovesical junction. No obstructing stone or lesion identified. Follow up with urology is recommended, right greater than left renal atrophy redmonstrated. CT of the head, no acute intracranial abnormalities. Small left parietal scalp contusion. Chest x-ray, cardiomegaly without acute process. EKG: junctional rhythm at a rate of 51. ASSESSMENT AND PLAN: This is an 82-year-old male who presents with falls. 1. Mechanical fall: No acute injury identified. Will monitor in the hospital. PT/OT. 2. Acute kidney injury on chronic kidney disease: His baseline creatinine seems to be around 1.5-2, present creatinine of 2.2. Getting gentle fluids. Avoid nephrotoxic agents. We will follow the lab. 3. History of coronary artery disease, status post coronary artery bypass graft: Continue his aspirin, Coreg, Imdur. 4. History of benign prostatic hyperplasia: Continue finasteride and Flomax. 5. Hypothyroidism: Continue Synthroid. 6. Hypertension: On Coreg and isosorbide mononitrate. 7. History of premature ventricular contractions: On amiodarone.s/p ICD 8. History of chronic systolic congestive heart failure: previous EF was less than 20% . An echo done in December 2020, EF is 42%. History of SC in 1987. History of CABG in 1998. On Coreg and Imdur. Not on any diuretics. We will monitor for any volume overload. 9. Hyperlipidemia: Statin intolerant. 10. History of pseudogout: On prednisone. 11. History of right ureteral cancer: He had ureteroscopic ablation done in August 2017 and September 2017. He had a small distal recurrence in July 2018, ablated completely down to the contour of the ureteral wall using the holmium laser and he had bilateral cystoscopic surveillance in January 2019 with no evidence of recurrence. He has narrowing of the right ureter consistent with stricture, that was balloon dilated. He underwent surveillance ureteroscopy on 11/25/2022 and dilatation of the right ureter stricture, which showed no evidence of recurrence and on 12/05/2022, stent was removed, currently creatinine is 2.2, getting fluids. We will follow the repeat labs in the a.m. Notified urology manager utilization review at [facility] and was advised to followup as outpatient within a week as this was incidental finding and patient is hemodynamically stable. If any change in condition will notify [facility] again. 12.Abnormal ekg.Will follow repeat ekg.Any concerns will consult cardiology. 13. Deep venous thrombosis prophylaxis: Placed on heparin subcutaneous. DISPOSITION: Closely monitor in the med tele. PT/OT prior to discharge. Social service to help with discharge planning. Level 1 full code. Job ID: [id number] [facility]
[2022-12-08] MEDS: TAMSULOSIN HCL 0.4 MG CAP PO SCH (08:34)
[2022-12-08] MEDS: CYANOCOBALAMIN (B-12) 500 MCG TABLET PO SCH (08:34)
[2022-12-08] MEDS: ISOSORBIDE MONO EXTENDED REL 30 MG TABCR PO SCH (08:34)
[2022-12-08] MEDS: AMIODARONE 200 MG TAB PO SCH (08:34)
[2022-12-08] MEDS: HEPARIN SOD 5,000 UNIT/0.5 ML VIAL SQ SCH ×2 (08:35→21:06)
[2022-12-08] MEDS: FINASTERIDE 5 MG TAB PO SCH (08:35)
[2022-12-08] MEDS: ACETAMINOPHEN 325 MG TAB PO PRN ×2 (08:37→21:16)
[2022-12-08] MEDS: predniSONE 2.5 MG TAB PO SCH (08:40)
[2022-12-08] MEDS: ASPIRIN 81 MG ECTAB PO SCH (11:24)
--- NOTE | 2022-12-08 11:33 | Electrocardiogram Report ---
Test Reason : Blood Pressure : / mmHG Vent. Rate : 051 BPM Atrial Rate : 052 BPM P-R Int : 000 ms QRS Dur : 106 ms QT Int : 502 ms P-R-T Axes : 000 022 070 degrees QTc Int : 462 ms Normal sinus rhythm Septal infarct (cited on or before 19-DEC-1998) Abnormal ECG When compared with ECG of 30-NOV-2021 12:40, T wave inversion now evident in Anterior leads PV's no longer present Confirmed by John Cohen ([id number]) on 12/08/2022 11:32:33 AM Referred By: Francisco Patel Confirmed By:Jhon Cohen
--- NOTE | 2022-12-08 11:42 | Cardiology Consultation ---
Date of Consultation December 08, 2022 Assessment & Plan (1) Fall: (2) BAO (acute kidney injury): (3) Hydronephrosis: (4) Abnormal ECG: (5) Coronary artery disease: (6) Status post coronary artery bypass grafting: (7) Ischemic cardiomyopathy: Plan The patient presented after mechanical fall from tripping over his dog Patient denies any cardiac complaints and states that lately has been feeling phenomenal Questionable EKG changes on study performed emergency department I do not see any acute cardiac issues at this time No further cardiac testing or invention necessary at this time Continue outpatient cardiac medical regimen History of Present Illness Reason for Consultation: abnormal ekg Requesting Physician: CAREN Attending Physician: Nay Hauser MD History of Present Illness PMHX per most recent cardiac visit: 1. Longstanding ASCVD with resultant ischemic cardiomyopathy, past LVEF < 20%. 1. Anteroseptal wall myocardial infarction in 1987. 2. Status post CABG x 4 on December 25, 1998 CABG x 4 with a GARCES to the first diagonal branch, MARGARITA to the PDA sequentially to the lateral circumflex branch and to the posterolateral circumflex branch. 3. Compensated volume status reported. 4. Status post March [address] Mane. 5. Status post September 11, 2021 generator exchange 2. Very frequent PVCs, 33.1% PVC burden, with frequent episodes of ventricular bigeminy, frequent episodes of ventricular tachycardia leading to initiation of oral amiodarone therapy on November 29, 2021, without adverse reaction, with significant improvement ventricular ectopy burden on follow-up Zio monitoring 3. Hypertension 4. Dyslipidemia, statin intolerant. 5. Chronic tobacco abuse 6. Uretheral cancer 7. Iron deficiency and B12 deficiency anemia. GI evaluation and endoscopy declined. 8. Pseudogout Allergies Allergy/AdvReac Type Severity Reaction Status Date / Time atorvastatin AdvReac Intermediate MUSCLE Verified 11/30/21 13:42 ACHES ARMS AND LEGS,SWELLING Home Medications Medication Instructions Recorded Confirmed Type amiodarone 200 mg tablet 200 mg PO QAM 11/30/21 12/07/22 History aspirin 81 mg chewable tablet 81 mg PO QDL 11/30/21 12/07/22 History carvedilol 12.5 mg tablet 12.5 mg PO BID 11/30/21 12/07/22 History finasteride 5 mg tablet 5 mg PO QAM 11/30/21 12/07/22 History isosorbide mononitrate 30 mg 30 mg PO QAM 11/30/21 12/07/22 History tablet,extended release 24 hr prednisone 5 mg tablet 2.5 mg PO QAM 11/30/21 12/07/22 History tamsulosin 0.4 mg capsule 0.4 mg PO QAM 11/30/21 12/07/22 History cyanocobalamin (vitamin B-12) 500 500 mcg PO DAILY 12/07/22 12/07/22 History mcg tablet (Vitamin B-12) ferrous sulfate 325 mg (65 mg 325 mg PO 3XWK 12/07/22 12/07/22 History iron) tablet (iron) levothyroxine 25 mcg tablet 37.5 mcg PO DAILYBB 12/07/22 12/07/22 History Patient History Social History Smoking Status: Former smoker Smoking End Date: 4 months ago; Second Hand Exposure: No; Do You Dip or Chew Tobacco: No; Tobacco Cessation Education Requested by Patient: No Hx Alcohol Use: Yes Alcohol type: wine Hx Substance Use: No Preferred Language: Hebrew Communication Ability: Effective Manager Diversity Required: No Beliefs That Will Affect Care: None Current Living Situation: Alone Other Information That Helps Us Care for You: No Feels Safe at Home: Yes Assistive Devices: Denture - Upper, Denture - Lower and Hearing Aid - Bilateral Results & Data ([facility]) Vital Signs (Past 12 Hours) Vital Signs Temp Pulse Pulse Pulse Resp BP BP 12/08/22 11:06 36.8 C 52 L 18 111/66 12/08/22 07:33 49 L 12/08/22 06:35 36.4 C L 50 L 18 163/81 H 12/08/22 05:54 54 L 12/08/22 02:41 36.6 C 54 L 14 182/83 H 12/08/22 02:29 36.6 C 54 L 14 182/83 H 12/08/22 02:00 50 L 16 158/66 H 12/08/22 01:00 50 L 16 160/69 H 12/08/22 00:00 48 L 18 154/56 H Pulse Ox O2 Del Method 12/08/22 11:06 95 Room Air 12/08/22 07:33 02/19/23 06:35 95 Room Air 12/08/22 05:54 12/08/22 02:41 95 Room Air 12/08/22 02:29 95 Room Air 12/08/22 02:00 95 Room Air 12/08/22 01:00 96 Room Air 12/08/22 00:00 95 Room Air (1) Fall Encounter type: initial encounter Qualified Code(s): W19.XXXA - Unspecified fall, initial encounter
--- NOTE | 2022-12-08 13:29 | Hospitalist Progress Note ---
Date of Service December 08, 2022 Assessment & Plan (1) Fall: Plan: Mechanical fall when he tripped over his dog and fell on the left side without significant injury and and no loss of consciousness No warning prior to fall Multiple imaging studies were done with notable findings of mild areas indeterminate T4 superior endplate compression fracture without retropulsion or paravertebral edema likely chronic Other findings as below Pain is controlled with Tylenol We will get PT and OT evaluation prior to discharge (2) BAO (acute kidney injury): Plan: History of chronic kidney disease and ureteral tumor Presented with BAO on CKD with a creatinine of 2.2 on 1 admission Received cautious amount of intravenous fluid and the creatinine is 1.79 Advised to drink more fluid (3) Hydronephrosis: Plan: History of right ureteric stent placement and removal on 12/05/2022 at [place] Under urologist care in [place] and the urologist being Dr. Barker and he saw Dr. Mclaughlin last Friday CT of the abdomen pelvis did show interval development of severe right-sided hydroureteronephrosis with dilation of the right ureter extending to level of the ureterovesical junction. No obstructive lesions identified. Urology follow-up recommended The admitting physician did talk to Dr. Sanford -since there is no acute symptoms and the creatinine is improving there is no need to have urgent transfer Will need to have an appointment with urologist Dr. Griffith sooner following discharge Advised to drink more fluid (4) Abnormal ECG: Plan: Noted to have sinus bradycardia Has significant cardiac history Appreciate cardiology input and recommended (5) Presence of combination internal cardiac defibrillator (ICD) and pacemaker: Plan: No acute cardiac symptoms (6) Urinary retention: Plan: As above Plan DVT prophylaxis Subcu heparin CODE STATUS Full Admission and Anticipated Discharge Date Admission Date: December 08, 2022 Subjective 12/08/2022 The patient was seen and examined in medical telemetry unit He tripped over his dog and fell on the floor hitting on the left side of the trunk Denies any warning symptoms before the fall and could manage to get up easily Complains pain in the left side of the trunk and back without any radiation Noted to have abnormal EKG and getting cardiology consult Review of Systems Review of Systems: All systems reviewed and are unremarkable except as noted below Musculoskeletal: Pain at the left lateral trunk and lower back on the left side Physical Exam Physical Exam: Lying in bed comfortably Constitutional: well developed, well nourished and average body habitus; not ill appearing Eyes: PERRL, conjunctivae normal, anicteric sclerae ENMT: external ear and nose normal, oropharynx normal Neck: trachea midline, no thyromegaly Respiratory: no respiratory distress Auscultation: lungs clear to auscultation bilaterally Cardiovascular: Rate/Rhythm: regular rate, regular rhythm and + bradycardic Heart Sounds: normal S1 and normal S2; no murmur Extremities: no edema Gastrointestinal (Abdomen): Inspection/Auscultation: normal bowel sounds; abdomen not distended Percussion/Palpation: abdomen soft; abdomen nontender Musculoskeletal: No acute arthritis involving any joint. No obvious spinal tenderness and no radiation of pain Neurologic: normal touch/pain/proprioception and moves all extremities; no focal motor deficits Alert, awake and oriented x3. Psychiatric: A+Ox3, euthymic affect Lymphatic: no cervical or axillary lymphadenopathy Results & Data Results & Data ([facility]) Vital Signs (Past 12 Hours) Vital Signs Temp Pulse Pulse Pulse Resp BP BP 12/08/22 11:06 36.8 C 52 L 18 111/66 12/08/22 07:33 49 L 12/08/22 06:35 36.4 C L 50 L 18 163/81 H 12/08/22 05:54 54 L 12/08/22 02:41 36.6 C 54 L 14 182/83 H 12/08/22 02:29 36.6 C 54 L 14 182/83 H 12/08/22 02:00 50 L 16 158/66 H Pulse Ox O2 Del Method 12/08/22 11:06 95 Room Air 12/08/22 07:33 12/08/22 06:35 95 Room Air 12/08/22 05:54 12/08/22 02:41 95 Room Air 12/08/22 02:29 95 Room Air 12/08/22 02:00 95 Room Air Laboratory Results Short CBC 12/07/22 12/08/22 Range/Units 22:01 06:52 WBC 6.33 5.95 (4.8-10.8) K/ul Hgb 12.2 L 11.3 L (14.0-18.0) g/dl Hct 36.9 L 34.2 L (42.0-52.0) % Plt Count 267 222 (130-400) K/uL BMP 12/07/22 12/08/22 22:01 06:52 Sodium 140 141 Potassium 3.9 4.0 Chloride 108 H 113 H Carbon Dioxide 27 24 BUN 34 H 30 H Creatinine 2.21 H 1.79 H D Glucose 125 H 102 H Calcium 8.6 8.1 L Cardiac Enzymes 12/07/22 Range/Units 22:01 Total Creatine Kinase 82 (30-223) U/L Liver Function 12/07/22 Range/Units 22:01 Total Bilirubin 0.3 (0.2-1.0) mg/dl AST 17 (13-39) U/L ALT 9 (7-52) U/L Alkaline Phosphatase 108 H (34-104) U/L Albumin 3.6 (3.4-5.0) gm/dl Urine 12/07/22 Range/Units 23:04 Urine Color Yellow Urine Appearance Clear (Clear) Urine pH 6.0 (4.5-7.5) Ur Specific [place] 1.017 (1.000-1.030) Urine Protein Negative (Negative) Urine Glucose (UA) Negative (Negative) Medications Administered Current Inpatient Medications Acetaminophen (Acetaminophen 325 Mg Tab) 650 mg PO Q4H PRN PRN Reason: Pain or Fever Stop: 01/07/23 02:28 Last Admin: 12/08/22 08:37 Dose: 650 mg Amiodarone HCl (Amiodarone 200 Mg Tab) 200 mg PO QAM [facility] Stop: 01/07/23 08:59 Last Admin: 12/08/22 08:34 Dose: 200 mg Aspirin (Aspirin 81 Mg Ectab) 81 mg PO QDL [facility] Stop: 01/07/23 11:29 Last Admin: 12/08/22 11:24 Dose: 81 mg Carvedilol (Carvedilol 12.5 Mg Tab) 12.5 mg PO BID [facility] Stop: 01/07/23 08:59 Last Admin: 12/08/22 07:12 Dose: Not Given Cyanocobalamin (Cyanocobalamin (B-12) 500 Mcg Tablet) 500 mcg PO DAILY [facility] Stop: 01/07/23 08:59 Last Admin: 12/08/22 08:34 Dose: 500 mcg Ferrous Sulfate (Ferrous Sulfate 325 Mg Tab) 325 mg PO MoWeFr@0900 [facility] Stop: 01/08/23 08:59 Finasteride (Finasteride 5 Mg Tab) 5 mg PO QAM [facility] Stop: 01/07/23 08:59 Last Admin: 12/08/22 08:35 Dose: 5 mg Heparin Sodium (Porcine) (Heparin Sod 5,000 Unit/0.5 Ml Vial) 5,000 units SQ Q12 [facility] Stop: 01/07/23 08:59 Last Admin: 12/08/22 08:35 Dose: 5,000 units Sodium Chloride (Nss 1000ml) 1,000 mls @ 80 mls/hr IV .[id number] [facility] Stop: 01/07/23 02:28 Last Admin: 12/08/22 03:14 Dose: 80 mls/hr Isosorbide Mononitrate (Isosorbide [place] Extended Rel 30 Mg Tabcr) 30 mg PO [facility] Stop: 01/07/23 08:59 Last Admin: 12/08/22 08:34 Dose: 30 mg Levothyroxine Sodium (Levothyroxine Sodium 25 Mcg Tablet) 37.5 mcg PO DAILYBB [facility] Stop: 01/07/23 06:29 Last Admin: 12/08/22 05:57 Dose: 37.5 mcg Nitroglycerin (Nitroglycerin Sl 0.4 Mg/Tab Tab) 0.4 mg SL UD PRN PRN Reason: Chest Pain Stop: 01/07/23 02:28 Polyethylene Glycol (Polyethylene (Miralax) 17 Gm Pack) 17 gm PO DAILY PRN PRN Reason: Constipation Stop: 01/07/23 02:28 Prednisone (Prednisone 2.5 Mg Tab) 2.5 mg PO [facility] Stop: 01/07/23 08:59 Last Admin: 12/08/22 08:40 Dose: Not Given Tamsulosin HCl (Tamsulosin Hcl 0.4 Mg Cap) [facility] Stop: 01/07/23 08:59 Last Admin: 12/08/22 08:34 Dose: 0.4 mg (1) Fall Encounter type: initial encounter Qualified Code(s): W19.XXXA - Unspecified fall, initial encounter
--- NOTE | 2022-12-08 14:10 | Electrocardiogram Report ---
Test Reason : Blood Pressure : / mmHG Vent. Rate : 048 BPM Atrial Rate : 048 BPM P-R Int : 218 ms QRS Dur : 106 ms QT Int : 516 ms P-R-T Axes : 069 012 049 degrees QTc Int : 460 ms Sinus bradycardia with 1st degree A-V block Septal infarct (cited on or before 19-DEC-1998) Nonspecific ST abnormality Abnormal ECG When compared with ECG of 07-DEC-2022 21:57, MA interval has increased Nonspecific T wave abnormality has replaced inverted T waves in Anterior leads Confirmed by Jhon Cohen ([id number]) on 12/08/2022 2:10:32 PM Referred By: Francisco Patel Confirmed By:Jhon Cohen
[2022-12-09] MEDS: LEVOTHYROXINE SODIUM 25 MCG TABLET PO SCH (05:59)
[2022-12-09 07:45] LABS: Basophils # (auto) 0.05 K/uL (0-0.2); Basophils % (auto) 0.8 %; Eosinophils # (auto) 0.41 K/uL (0-0.50); Eosinophils % (auto) 6.2 %; Hematocrit (blood only) 40.1 % (42.0-52.0); Hemoglobin 13.1 g/dl (14.0-18.0); Immature Granulocytes # (auto) 0.01 K/uL (0.01-0.20); Immature Granulocytes % (auto) 0.2 %; Lymphocytes # (auto) 1.22 K/uL (1.2-3.4); Lymphocytes % (auto) 18.5 %; Mean Corpuscular Hgb Conc 32.7 g/dL (32.0-36.0); Mean Corpuscular Volume 94.8 fL (80.0-100.0); Mean Platelet Volume 9.4 fL (9.4-12.4); Monocytes # (auto) 0.54 K/uL (0.11-0.59); Monocytes % (auto) 8.2 %; Neutrophils # (auto) 4.36 K/uL (1.40-6.50); Neutrophils % (auto) 66.1 %; Platelet Count 229 K/uL (130-400); RDW Coefficient of Variation 13.6 % (11.5-14.5); RDW Standard Deviation 47.1 fL (36.4-46.3); Red Blood Count 4.23 M/uL (4.70-6.10); White Blood Count 6.59 K/ul (4.8-10.8)
[2022-12-09 08:06] LABS: BUN Creatinine Ratio 11.1 (10-20); Calcium 8.5 mg/dl (8.5-10.1); Est GFR (African American) 35.2 ml/min; Est GFR (Non-African American) 30.4 ml/min; Magnesium 2.1 mg/dl (1.7-2.4)
[2022-12-09] MEDS: predniSONE 2.5 MG TAB PO SCH (08:34)
[2022-12-09] MEDS: carvediloL 12.5 MG TAB PO SCH (08:35)
[2022-12-09] MEDS: ISOSORBIDE MONO EXTENDED REL 30 MG TABCR PO SCH (08:35)
[2022-12-09] MEDS: FINASTERIDE 5 MG TAB PO SCH (08:35)
[2022-12-09] MEDS: TAMSULOSIN HCL 0.4 MG CAP PO SCH (08:36)
[2022-12-09] MEDS: CYANOCOBALAMIN (B-12) 500 MCG TABLET PO SCH (08:36)
[2022-12-09] MEDS: AMIODARONE 200 MG TAB PO SCH (08:36)
[2022-12-09] MEDS: HEPARIN SOD 5,000 UNIT/0.5 ML VIAL SQ SCH (08:36)
--- NOTE | 2022-12-09 08:47 | Electrocardiogram Report ---
Test Reason : Blood Pressure : / mmHG Vent. Rate : 047 BPM Atrial Rate : 047 BPM P-R Int : 224 ms QRS Dur : 102 ms QT Int : 512 ms P-R-T Axes : 071 013 026 degrees QTc Int : 453 ms Sinus bradycardia with 1st degree A-V block Abnormal ECG When compared with ECG of 08-DEC-2022 04:54, Inverted T waves have replaced nonspecific T wave abnormality in Anterior leads Confirmed by Giancarlo Mejía ([id number]) on 12/09/2022 8:47:23 AM Referred By: Francisco Patel Confirmed By:Niko Mejía
[2022-12-09] MEDS ORDERED: FERROUS SULFATE 325 MG TAB PO SCH (09:00)
[2022-12-09] MEDS: ASPIRIN 81 MG ECTAB PO SCH (11:21)
--- NOTE | 2022-12-09 12:21 | Hospitalist Progress Note ---
Date of Service December 09, 2022 Assessment & Plan (1) Fall: Plan: Mechanical fall when he tripped over his dog and fell on the left side without significant injury and and no loss of consciousness No warning prior to fall Multiple imaging studies were done with notable findings of mild areas indeterminate T4 superior endplate compression fracture without retropulsion or paravertebral edema likely chronic Other findings as below Pain is controlled with Tylenol We will get PT and OT evaluation prior to discharge Has had PT you on the OT evaluation and recommended home Patient is free from any symptoms Will be discharged home this afternoon (2) BAO (acute kidney injury): Plan: History of chronic kidney disease and ureteral tumor Presented with BAO on CKD with a creatinine of 2.2 on 1 admission Received cautious amount of intravenous fluid and the creatinine is 1.79 Advised to drink more fluid We will get an appointment with Dr. Griffith as an outpatient as soon as possible (3) Hydronephrosis: Plan: History of right ureteric stent placement and removal on 12/05/2022 at [place] Under urologist care in [place] and the urologist being Dr. Barker and he saw Dr. Mclaughlin last Friday CT of the abdomen pelvis did show interval development of severe right-sided hydroureteronephrosis with dilation of the right ureter extending to level of the ureterovesical junction. No obstructive lesions identified. Urology follow-up recommended The admitting physician did talk to Dr. Sanford -since there is no acute symptom s and the creatinine is improving there is no need to have urgent transfer Will need to have an appointment with urologist Dr. Griffith sooner following discharge Advised to drink more fluid As above (4) Abnormal ECG: Plan: Noted to have sinus bradycardia Has significant cardiac history Appreciate cardiology input and recommended No further issues with arrhythmia (5) Presence of combination internal cardiac defibrillator (ICD) and pacemaker: Plan: No acute cardiac symptoms (6) Urinary retention: Plan: As above Plan DVT prophylaxis Subcu heparin CODE STATUS Full Discharge home this afternoon Admission and Anticipated Discharge Date Admission Date: December 08, 2022 Subjective 12/08/2022 The patient was seen and examined in medical telemetry unit He tripped over his dog and fell on the floor hitting on the left side of the trunk Denies any warning symptoms before the fall and could manage to get up easily Complains pain in the left side of the trunk and back without any radiation Noted to have abnormal EKG and getting cardiology consult 12/09/2022 The patient was seen and examined in medical telemetry unit He does not have any symptoms today and denies any pain He has had physical therapy and wants to go home Review of Systems Review of Systems: All systems reviewed and are unremarkable except as noted below Musculoskeletal: Pain at the left lateral trunk and lower back on the left side Physical Exam Physical Exam: Lying in bed comfortably Constitutional: well developed, well nourished and average body habitus; not ill appearing Eyes: PERRL, conjunctivae normal, anicteric sclerae ENMT: external ear and nose normal, oropharynx normal Neck: trachea midline, no thyromegaly Respiratory: no respiratory distress Auscultation: lungs clear to auscultation bilaterally Cardiovascular: Rate/Rhythm: regular rate, regular rhythm and + bradycardic Heart Sounds: normal S1 and normal S2; no murmur Extremities: no edema Gastrointestinal (Abdomen): Inspection/Auscultation: normal bowel sounds; abdomen not distended Percussion/Palpation: abdomen soft; abdomen nontender Musculoskeletal: No acute arthritis involving any joint Neurologic: normal touch/pain/proprioception and moves all extremities; no focal motor deficits Psychiatric: A+Ox3, euthymic affect Lymphatic: no cervical or axillary lymphadenopathy Results & Data Results & Data ([facility]) Vital Signs (Past 12 Hours) Vital Signs Temp Pulse Pulse Resp BP BP Pulse Ox 12/09/22 11:57 36.6 C 57 L 15 145/73 H 96 12/09/22 07:51 36.7 C 56 L 15 193/88 H 94 12/09/22 07:38 49 L 12/09/22 03:57 36.6 C 52 L 18 169/81 H 94 O2 Del Method 12/09/22 11:57 Room Air 12/09/22 07:51 Room Air 12/09/22 07:38 12/09/22 03:57 Room Air Laboratory Results Short CBC 12/09/22 Range/Units 07:08 WBC 6.59 (4.8-10.8) K/ul Hgb 13.1 L (14.0-18.0) g/dl Hct 40.1 L (42.0-52.0) % Plt Count 229 (130-400) K/uL BMP 12/09/22 07:08 Sodium 141 Potassium 5.0 D Chloride 113 H Carbon Dioxide 24 BUN 22 Creatinine 1.99 H Glucose 91 Calcium 8.5 Medications Administered Current Inpatient Medications Acetaminophen (Acetaminophen 325 Mg Tab) 650 mg PO Q4H PRN PRN Reason: Pain or Fever Stop: 01/07/23 02:28 Last Admin: 12/08/22 21:16 Dose: 650 mg Amiodarone HCl (Amiodarone 200 Mg Tab) 200 mg PO QAM [facility] Stop: 01/07/23 08:59 Last Admin: 12/09/22 08:36 Dose: 200 mg Aspirin (Aspirin 81 Mg Ectab) 81 mg PO QDL [facility] Stop: 01/07/23 11:29 Last Admin: 12/09/22 11:21 Dose: 81 mg Carvedilol (Carvedilol 12.5 Mg Tab) 12.5 mg PO BID [facility] Stop: 01/07/23 08:59 Last Admin: 12/09/22 08:35 Dose: 12.5 mg Cyanocobalamin (Cyanocobalamin (B-12) 500 Mcg Tablet) 500 mcg PO DAILY [facility] Stop: 01/07/23 08:59 Last Admin: 12/09/22 08:36 Dose: 500 mcg Ferrous Sulfate (Ferrous Sulfate 325 Mg Tab) 325 mg PO MoWeFr@0900 [facility] Stop: 01/08/23 08:59 Last Admin: 12/09/22 08:35 Dose: Not Given Finasteride (Finasteride 5 Mg Tab) 5 mg PO QAM [facility] Stop: 01/07/23 08:59 Last Admin: 12/09/22 08:35 Dose: 5 mg Heparin Sodium (Porcine) (Heparin Sod 5,000 Unit/0.5 Ml Vial) 5,000 units SQ Q12 [facility] Stop: 01/07/23 08:59 Last Admin: 12/09/22 08:36 Dose: 5,000 units Isosorbide Mononitrate (Isosorbide [place] Extended Rel 30 Mg Tabcr) 30 mg PO QAM [facility] Stop: 01/07/23 08:59 Last Admin: 12/09/22 08:35 Dose: 30 mg Levothyroxine Sodium (Levothyroxine Sodium 25 Mcg Tablet) 37.5 mcg PO DAILYBB [facility] Stop: 01/07/23 06:29 Last Admin: 12/09/22 05:59 Dose: 37.5 mcg Nitroglycerin (Nitroglycerin Sl 0.4 Mg/Tab Tab) 0.4 mg SL UD PRN PRN Reason: Chest Pain Stop: 01/07/23 02:28 Polyethylene Glycol (Polyethylene (Miralax) 17 Gm Pack) 17 gm PO DAILY PRN PRN Reason: Constipation Stop: 01/07/23 02:28 Prednisone (Prednisone 2.5 Mg Tab) [facility] Stop: 01/07/23 08:59 Last Admin: 12/09/22 08:34 Dose: Not Given Tamsulosin HCl (Tamsulosin Hcl 0.4 Mg Cap) 0.4 mg PO [facility] Stop: 01/07/23 08:59 Last Admin: 12/09/22 08:36 Dose: 0.4 mg (1) Fall Encounter type: initial encounter Qualified Code(s): W19.XXXA - Unspecified fall, initial encounter
--- NOTE | 2022-12-09 13:03 | Communication Note ---
Date of Service: December 09, 2022 By CMS guidelines, a determination that the admission or continued stay is not medically necessary has been made by a member of the UR committee and a physician for this hospital stay, therefore a Code 44 will be completed and the Inpatient admission will be changed to outpatient. Dakotah Curtis MD Member, Utilization Review Committee
--- NOTE | 2022-12-10 07:19 | Discharge Summary ---
Date of Service December 10, 2022 Admission HPI Per Admitting Provider DICTATED BY:Marcelo Camarena MD DATE OF ADMISSION: 12/08/2022. CHIEF COMPLAINT: Status post fall, BAO. HISTORY OF PRESENT ILLNESS: This is an 82-year-old male with past medical history significant for hyperlipidemia, CAD, history of ischemic cardiomyopathy, status post cardiac defibrillator, history of PVCs, history of ureteral tumor, history of chronic kidney disease, who presents with fall. The patient was tripped over the dog and fell down on the back on the left side, complaining of back pain. The patient was brought into the hospital. Imaging studies were okay for any acute injuries. Creatinine was found to be 2.2, baseline seems to be around 1.4-1.6. His CT of abdomen and pelvis showing severe right-sided hydroureteronephrosis, dilatation of the right ureter extending to the level of the ureterovesical junction. No obstructive stones or lesions identified. The patient is currently resting comfortably and hemodynamically stable. He says that when he came in the pain of the back was 7/10, currently 4/10 in severity. Did not hit his head. No loss of consciousness and was able to get up after falling down. No blurred visions, no earache. Some runny nose, no sore throat, no cough. Appetite is okay. No chest pain or shortness of breath, no nausea, no abdominal pain. Normal bowel and bladder movements. Hemodynamically stable. Admission Exam Per Admitting Provider GENERAL: The patient is of moderate build, not in acute distress. VITAL SIGNS: Temperature 37.2, pulse 50s, blood pressure 154/56, oxygen 95% on room air. HEENT: Pupils equal, round and reactive to light. Oral mucosa moist. NECK: No JVD, no neck masses. CARDIOVASCULAR: S1 and S2 heard. Bradycardia. No murmurs. RESPIRATORY SYSTEM: Normal AP diameter. No accessory muscle use. No wheezing, no crackles. ABDOMEN: Soft, bowel sounds present, nontender, no distention. CENTRAL NERVOUS SYSTEM: Alert and oriented. Speech is clear. No facial droop. Obeys simple commands. Moves extremities. EXTREMITIES: No edema, no erythema. Principal Diagnosis Mechanical fall without any significant trauma, right moderate to severe hydronephrosis, ureteric tumor, ICD status Discharge Exam Lying in bed comfortably Constitutional well developed, well nourished and average body habitus; not ill appearing Eyes PERRL, conjunctivae normal, anicteric sclerae ENMT external ear and nose normal, oropharynx normal Neck trachea midline, no thyromegaly Respiratory no respiratory distress Auscultation: lungs clear to auscultation bilaterally Cardiovascular Rate/Rhythm: regular rate, regular rhythm and + bradycardic Heart Sounds: normal S1 and normal S2; no murmur Extremities: no edema Gastrointestinal (Abdomen) Inspection/Auscultation: normal bowel sounds; abdomen not distended Percussion/Palpation: abdomen soft; abdomen nontender Neurologic normal touch/pain/proprioception and moves all extremities; no focal motor deficits Psychiatric A+Ox3, euthymic affect Lymphatic no cervical or axillary lymphadenopathy Discharge Data Allergies Allergy/AdvReac Type Severity Reaction Status Date / Time atorvastatin AdvReac Intermediate MUSCLE Verified 11/30/21 13:42 ACHES ARMS AND LEGS,SWELLING Consultations 12/07/22 23:57 ED Decision to Admit Stat Ordered Studies 12/07/22 21:56 CT abd pelvis wo con Stat CT cervical spine wo con Stat CT chest diagnostic wo con Stat CT head/brain wo con Stat CT lumbar spine wo con Stat CT thoracic spine wo con Stat Hospital Course (1) Fall: Mechanical fall when he tripped over his dog and fell on the left side without significant injury and and no loss of consciousness No warning prior to fall Multiple imaging studies were done with notable findings of mild areas indeterminate T4 superior endplate compression fracture without retropulsion or paravertebral edema likely chronic Other findings as below Pain is controlled with Tylenol We will get PT and OT evaluation prior to discharge Has had PT you on the OT evaluation and recommended home Patient is free from any symptoms Will be discharged home this afternoon (2) BAO (acute kidney injury): History of chronic kidney disease and ureteral tumor Presented with BAO on CKD with a creatinine of 2.2 on 1 admission Received cautious amount of intravenous fluid and the creatinine is 1.79 Advised to drink more fluid We will get an appointment with Dr. Griffith as an outpatient as soon as possible (3) Hydronephrosis: History of right ureteric stent placement and removal on 12/05/2022 at [place] Under urologist care in [place] and the urologist being Dr. Barker and he saw Dr. Mclaughlin last Friday CT of the abdomen pelvis did show interval development of severe right-sided hydroureteronephrosis with dilation of the right ureter extending to level of the ureterovesical junction. No obstructive lesions identified. Urology follow-up recommended The admitting physician did talk to Dr. Sanford -since there is no acute symptoms and the creatinine is improving there is no need to have urgent transfer Will need to have an appointment with urologist Dr. Griffith sooner following discharge Advised to drink more fluid As above (4) Abnormal ECG: Noted to have sinus bradycardia Has significant cardiac history Appreciate cardiology input and recommended No further issues with arrhythmia (5) Presence of combination internal cardiac defibrillator (ICD) and pacemaker: No acute cardiac symptoms (6) Urinary retention: As above Plan DVT prophylaxis Subcu heparin CODE STATUS Full Discharge home this afternoon Total Time Total Time Spent Total Time Spent (In Minutes): 35 minutes Discharge Plan Discharge Items Patient Disposition: Home - Self-Care Reason For Visit: FALL Discharge Diagnosis: Mechanical fall without any significant trauma, right moderate to severe hy dronephrosis, ureteric tumor, ICD status Condition on Discharge: Fair Activity: Resume your previous activity Non-emergency contact: Primary Care Provider Call non-emergency contact if: you have any medication questions and your symptoms worsen Follow-up/Referrals: Francisco Patel [Primary Care Provider] - Bret Gavin MD [Outside Practitioners] - (Date & Time 12/12/2022 2:15 PM Provider [facility] Diet: Heart Healthy Addtl Attending Provider Instructions: Please take precautions to avoid falls No change in your current medications Take your medications as advised Please give appointments with your healthcare providers It is important that he should keep appointment with Dr. Griffith the urologist Pending Studies at Discharge: No Stand-Alone Forms: My ERPLY, Smoking Cessation Medications and DC Order Prescriptions: Continued carvedilol 12.5 mg tablet 12.5 mg PO BID amiodarone 200 mg tablet 200 mg PO QAM isosorbide mononitrate 30 mg tablet extended release 24 hr 30 mg PO QAM prednisone 5 mg tablet 2.5 mg PO QAM tamsulosin 0.4 mg capsule 0.4 mg PO QAM aspirin 81 mg Tablet,Chewable 81 mg PO QDL finasteride 5 mg tablet 5 mg PO QAM levothyroxine 25 mcg tablet 37.5 mcg PO DAILYBB Rx Instructions: 1 & 1/2 tablet dose cyanocobalamin (vitamin B-12) [Vitamin B-12] 500 mcg Tablet 500 mcg PO DAILY ferrous sulfate [iron] 325 mg (65 mg iron) Tablet 325 mg PO 3XWK Rx Instructions: take daily on MONDAYS,WEDNESDAYS,FRIDAYS Discharge Orders: Discharge Order (Routine); Ordered 12/09/22 Ordered By: Nay Hauser Admission Data Admit Date/Time: 12/08/22 01:03 Attending Provider: Nay Hauser Admit Provider: Marcelo Camarena Primary Care Provider: Francisco Patel Other Providers: Marcelo Camarena Other Interventions: Discharge Summary Assessment (RN) Last Done: 12/09/22 13:23
== END 2022-12-09 15:06 | disposition home or self-care (01) ==
LOC: ED 21:44 → 2N 12-08 01:03 → INTOOBSV 12-08 01:03 → 2N 12-08 02:03